=== PATIENT | female | born 1960 | race Caucasian/White ===

== ENCOUNTER 2021-10-15 15:24 | Outpatient (REF) | payer OTHER, SELFPAY ==
[2021-10-15 15:55] LABS: COVID-19 Test Negative (Negative)
== END 2021-10-15 15:25 | disposition home or self-care (01) ==
LOC: HO.LNP 15:24
PROVIDERS: Visit Provider Internal Medicine
DX: R51.9 Headache, unspecified (principal); M54.2 Cervicalgia; Z20.822 Contact with and (suspected) exposure to COVID-19
CPT/HCPCS: 87635

== ENCOUNTER 2021-10-16 14:06 | Outpatient (REF) | payer OTHER, SELFPAY ==
[2021-10-16 14:30] LABS: MANUAL DIFF FLAG NO
[2021-10-16 14:35] LABS: Basophils Absolute Auto 0.1 X10*3/uL (0.0-0.2); Basophils Percent Auto 0.6 % (0-2); Eosinophils Absolute Auto 0.2 X10*3/uL (0.0-0.4); Eosinophils Percent Auto 1.8 % (0-4); Hematocrit 39.1 % (37.0-47.0); Hemoglobin 12.8 g/dl (12.0-16.0); Imm Gran Abs Auto 0.02 X10*3/uL (0.00-0.03); Imm Gran Pct Auto 0.2 % (0.0-0.4); Lymphocytes Absolute Auto 2.6 X10*3/uL (1.2-4.9); Lymphocytes Percent Auto 28.5 % (20-40); Mean Corpuscular HGB Conc 32.7 g/dl (31.0-35.0); Mean Corpuscular Hemoglobin 28.2 pg (27.0-33.0); Mean Corpuscular Volume 86.1 fL (80.0-98.0); Mean Platelet Volume 10.3 fL (9.4-12.3); Monocytes Absolute Auto 0.6 X10*3/uL (0.1-1.2); Monocytes Percent Auto 6.5 % (2-11); Neutrophils Absolute Auto 5.6 x10*3/uL (2.0-8.3); Neutrophils Percent Auto 62.4 % (45-73); Platelet Count 279 X10*3/uL (160-400); Red Blood Count 4.54 X10*6/uL (4.20-5.50); Red Cell Distribution Width 13.2 % (11.0-16.0)
[2021-10-16 15:04] LABS: Anion Gap 11 (12-20); Blood Urea Nitrogen 16 mg/dL (9-16); C Reactive Protein 1.04 mg/dL (< or = 0.50); Calcium 9.8 mg/dL (8.4-10.2); Carbon Dioxide 33 mmol/L (22-29); Chloride 101 mmol/L (96-108); Estimated Glomerular Filt Rate 45; Glucose Random 105 mg/dL (60-115); Potassium 3.6 mmol/L (3.3-5.1); Sodium 141 mmol/L (135-145)
[2021-10-16 15:26] LABS: Thyroid Stimulating Hormone 1.29 uIU/mL (0.32-4.0)
== END 2021-10-16 14:07 | disposition home or self-care (01) ==
LOC: HO.LAB 14:06
PROVIDERS: PCP Internal Medicine; Visit Provider Internal Medicine
DX: I12.9 Hypertensive chronic kidney disease with stage 1 through stage 4 chronic kidney disease, or unspecified chronic kidney disease (principal); N18.9 Chronic kidney disease, unspecified
CPT/HCPCS: 36415; 80048; 84439; 84443; 85025; 86140

== ENCOUNTER 2021-10-28 11:14 | Outpatient (REF) | payer OTHER, SELFPAY ==
[2021-10-28 13:53] LABS: MANUAL DIFF FLAG NO
[2021-10-28 14:01] LABS: Basophils Absolute Auto 0.1 X10*3/uL (0.0-0.2); Basophils Percent Auto 0.8 % (0-2); Eosinophils Absolute Auto 0.2 X10*3/uL (0.0-0.4); Eosinophils Percent Auto 2.7 % (0-4); Hematocrit 40.4 % (37.0-47.0); Hemoglobin 12.9 g/dl (12.0-16.0); Imm Gran Abs Auto 0.03 X10*3/uL (0.00-0.03); Imm Gran Pct Auto 0.4 % (0.0-0.4); Lymphocytes Absolute Auto 2.3 X10*3/uL (1.2-4.9); Lymphocytes Percent Auto 27.4 % (20-40); Mean Corpuscular HGB Conc 31.9 g/dl (31.0-35.0); Mean Corpuscular Hemoglobin 28.1 pg (27.0-33.0); Monocytes Absolute Auto 0.6 X10*3/uL (0.1-1.2); Monocytes Percent Auto 6.9 % (2-11); Neutrophils Absolute Auto 5.1 x10*3/uL (2.0-8.3); Neutrophils Percent Auto 61.8 % (45-73); Platelet Count 282 X10*3/uL (160-400); Red Blood Count 4.59 X10*6/uL (4.20-5.50); Red Cell Distribution Width 13.7 % (11.0-16.0); White Blood Count 8.3 X10*3/uL (4.8-10.8)
[2021-10-28 14:13] LABS: Alanine Aminotransferase 15 U/L (0-31); Albumin Level 4.3 g/dL (3.5-5.0); Alkaline Phosphatase 84 U/L (39-117); Anion Gap 14 (12-20); Aspartate Amino Transferase 15 U/L (5-31); Bilirubin Total 0.6 mg/dL (0.0-1.0); Blood Urea Nitrogen 16 mg/dL (9-16); Calcium 9.7 mg/dL (8.4-10.2); Carbon Dioxide 31 mmol/L (22-29); Chloride 99 mmol/L (96-108); Cholesterol 210 mg/dL; Estimated Glomerular Filt Rate > 60; Glucose Fasting 93 mg/dL (60-99); HDL Cholesterol 44 mg/dL; LDL Cholesterol Calculated 137 mg/dl; Potassium 4.2 mmol/L (3.3-5.1); Sodium 140 mmol/L (135-145); Total Protein 7.2 g/dL (6.5-8.0); Triglycerides 145 mg/dL
== END 2021-10-28 11:15 | disposition home or self-care (01) ==
LOC: HO.10HDL 11:14
PROVIDERS: Visit Provider Internal Medicine
DX: I12.9 Hypertensive chronic kidney disease with stage 1 through stage 4 chronic kidney disease, or unspecified chronic kidney disease (principal); N18.9 Chronic kidney disease, unspecified
CPT/HCPCS: 36415; 80053; 80061; 85025

== ENCOUNTER 2023-11-02 10:42 | Outpatient (REF) | payer OTHER, SELFPAY ==
[2023-11-02 13:25] LABS: MANUAL DIFF FLAG NO
[2023-11-02 13:39] LABS: Basophils Absolute Auto 0.1 X10*3/uL (0.0-0.2); Basophils Percent Auto 0.7 % (0-2); Eosinophils Absolute Auto 0.2 X10*3/uL (0.0-0.4); Eosinophils Percent Auto 3.1 % (0-4); Hematocrit 39.1 % (37.0-47.0); Hemoglobin 12.9 g/dl (12.0-16.0); Imm Gran Abs Auto 0.02 X10*3/uL (0.00-0.03); Imm Gran Pct Auto 0.3 % (0.0-0.4); Lymphocytes Percent Auto 26.7 % (20-40); Mean Corpuscular Volume 84.8 fL (80.0-98.0); Mean Platelet Volume 10.9 fL (9.4-12.3); Monocytes Absolute Auto 0.5 X10*3/uL (0.1-1.2); Monocytes Percent Auto 6.4 % (2-11); Neutrophils Absolute Auto 4.7 x10*3/uL (2.0-8.3); Neutrophils Percent Auto 62.8 % (45-73); Platelet Count 292 X10*3/uL (160-400); Red Blood Count 4.61 X10*6/uL (4.20-5.50); Red Cell Distribution Width 13.7 % (11.0-16.0); White Blood Count 7.5 X10*3/uL (4.8-10.8)
[2023-11-02 13:59] LABS: Alanine Aminotransferase 12 U/L (0-31); Albumin Level 4.1 g/dL (3.5-5.0); Alkaline Phosphatase 77 U/L (39-117); Anion Gap 12 (12-20); Aspartate Amino Transferase 13 U/L (5-31); Bilirubin Total 0.6 mg/dL (0.0-1.0); Blood Urea Nitrogen 15 mg/dL (9-16); Calcium 9.4 mg/dL (8.4-10.2); Carbon Dioxide 33 mmol/L (22-29); Chloride 100 mmol/L (96-108); Cholesterol 182 mg/dL (<200); Estimated Glomerular Filt Rate 58; Glucose Fasting 106 mg/dL (60-99); HDL Cholesterol 38 mg/dL (>40); LDL Cholesterol Calculated 118 mg/dL (<100); Potassium 3.5 mmol/L (3.3-5.1); Sodium 141 mmol/L (135-145); Total Protein 7.1 g/dL (6.5-8.0); Triglycerides 134 mg/dL (<150)
== END 2023-11-02 10:43 | disposition home or self-care (01) ==
LOC: HO.10HDL 10:42
PROVIDERS: Visit Provider Internal Medicine
DX: I10 Essential (primary) hypertension (principal); E78.00 Pure hypercholesterolemia, unspecified; K21.9 Gastro-esophageal reflux disease without esophagitis
CPT/HCPCS: 36415; 80053; 80061; 85025

== ENCOUNTER 2024-03-31 13:57 | Outpatient (REF) | payer BC, SELFPAY ==
[2024-03-31 14:31] LABS: Appearance Urine Clear; Color Urine Dark Yellow; Glucose Urine UA Negative (Negative); Leukocyte Esterase Urine Trace (Negative); Nitrite Urine Negative (Negative); Specific Gravity - Urine 1.025 (1.005-1.025); UMIC TRIGGER UACC YES; Urine Blood Negative (Negative); Urine Ketones Trace mg/dL (Negative); Urine Protein Trace mg/dL (Neg-Trace)
[2024-03-31 14:39] LABS: Bacteria Urine None Seen (None Seen); RBC Urine 0-2 /HPF (0-2); Squamous Epithelial Cell Urine 0-2 /HPF (0-2); WBC Urine 0-5 /HPF (0-5)
== END 2024-03-31 13:58 | disposition home or self-care (01) ==
LOC: HO.LAB 13:57
PROVIDERS: PCP Internal Medicine; Visit Provider Internal Medicine
DX: R30.0 Dysuria (principal)
CPT/HCPCS: 81001; 87086

== ENCOUNTER 2025-06-06 07:22 | Day surgery (SDC) | payer BC, SELFPAY ==
--- OUTSIDE RECORDS SUMMARY | 2025-05-10 09:51 | XMS_ITS | Patient Health Record ---
Author Organization [facility] Address [address] [place] [address] Care Team Providers Care Locomotive Observer Name Role Phone Stephany Kenyon M.D. Primary Care Provider Unavail able Golden Marino Unavailable [phone] Allergies Allergen (clinical drug ingredient) Drug/Non Drug Allergy documented on EMR Reaction Allergy Type Onset Date Status seasonal (uncoded) Unknown Allergy A ctive Reason For Referral Referring Provider First Name Stephany Referring Provider Last Name Luis Daniel Referred Organization [facility] Referred Provider Golden Marino Referred Address [address] [facility],[place], [place],[address], Referred Provider Specialty Gastroentero logy General Notes Maile Cartagena 2024 02:33:40 PM >requested o blue referral from Dr. Kenyon's office for visit with Dr. Marino on 02-28-25 [phone] Referral Priority Routine Medications Medication SIG (Take, Route, Frequency, Duration) Notes Start Date End Date Status Triamterene-HCTZ 37.5-25 MG 1 tablet in the morning Orally Once a day Active Immunizations Vaccine Route Administration Date Status Comme nts Influenza Unknown 02/28/2025 Refused Social History Tobacco Use: Social History Observation Description Date Details (start date - stop date) Current Smoker NA - NA Tobacco Control (Standard) Question Answer Notes Tobacco use: Current smoker AUDIT-C (Standard) Question Answer Notes Did you have a drink contain ing alcohol in the past year? Yes How often did you have a dri nk containing alcohol in the past year? 2 to 4 times a month (2 points) How many drinks did you have on a typical day when you were drinking in the past year? 1 or 2 drinks (0 point) How often did you have six o r more drinks on one occasion in the past year? Never (0 point) Points 2 Interpretation Negative Section Notes: Nonsmoker; no sig alcohol Problems Problem Type SNOMED Code ICD Code Onset Dates Problem Status W/U Status Risk Notes Problem Colon cancer screening (704412885) Colon cancer screening (Z12.11) Active confirmed Problem Preprocedural examination (818984759344101) Preprocedural examination (Z01.818) Active confirmed Vital Signs Temperature 98.0 degrees Fahrenheit 02/28/2025 Blood pressure diastolic 01 mm Hg 02/28/2025 Height 67 in 02/28/2025 Blood pressure systolic 001 mm Hg 02/28/2025 Weight 212.8 lbs 02/28/2025 BMI 33.33 kg/m2 02/28/2025 Procedures Procedure Date Ordered Date Performed Result Body Sit e COLONOSCOPY 02/28/2025 N/A Encounters Encounter Location Date Provider Diagnosis [facility] [address] [place] [address] 02/28/2025 Golden Marino Colon cancer screeni ng Z12.11 and Preprocedural examination Z01.818 Assessments Encounter Date Diagnosis (ICD Code) Assessment Notes Treatment Notes Treatment Clinical Notes Section Notes 02/28/2025 Colon cancer screening (ICD-10 - Z12.11) Overall, Ann appears quite well. Given her age, excellent clinical appearance, and her last colonoscopy being about 10 years ago, I did recommend a follow-up colonoscopy for further screening purposes. We did review the rationale for this in regard to colon cancer prevention. Full consent has been obtained from her for this, including risks of bleeding and perforation. The procedure will be done with monitored anesthesia care. She was given the below instructions regarding adjustment of her medication for the procedure. Ann was comfortable with this plan. Thank you again for allowing me to participate in Ann's care. I shall continue to keep you advised of her progress. 02/28/2025 Preprocedural examination (ICD-10 - Z01.818) Overall, Ann appears quite well. Given her age, excellent clinical appearance, and her last colonoscopy being about 10 years ago, I did recommend a follow-up colonoscopy for further screening purposes. We did review the rationale for this in regard to colon cancer prevention. Full consent has been obtained from her for this, including risks of bleeding and perforation. The procedure will be done with monitored anesthesia care. She was given the below instructions regarding adjustment of her medication for the procedure. Ann was comfortable with this plan. Thank you again for allowing me to participate in Ann's care. I shall continue to keep you advised of her progress. Plan Of Treatment Pending Test Test Name Order Date COLONOSCOPY 02/28/2025 Next Appt Details Provider Name:Golden Marino , 06/06/2025 08:30:00 AM, [address] [place] [address] , [place], [place], [phone], Insurance Providers Payer Name Payer Address Payer Phone Subscriber Number Group Number Insured Name Patient Relationship to Insured Coverage Start Date Coverage End Date [employer] [address] [place] [address] [id number] [place] Self - patient is the insured Medical (General) History Medical History History ICD Code HTN Denies [place],DM,CVA,Lung disease,renal dise ase Negative screening colonoscopy in 2014 a t [facility] Surgical History Surgery Date(Month/Year) Cholecystectomy
[2025-06-04 14:39] VITALS: BMI 33.3
[2025-06-06 07:58] VITALS: BP 114/67; PULSE 83; RESP 14; TEMP 36.3; O2SAT 96; BMI 32.4
[2025-06-06] MEDS: Lactated Ringers 1,000 ML 100 ML IVCONT (08:07)
--- NOTE | 2025-06-06 08:16 | HO.ANESPROP2 ---
Documented by User: Angelica Ashley NP 06/05/25 09:23 HPI - Anesthesia Eval Consult details Narrative: 65 yr old female for colonoscopy [facility] Past Medical History Medical History (Updated 06/04/25 @ 14:39 by Addie Velez RN) HTN (hypertension) Surgical History Surgical History (Updated 06/04/25 @ 14:39 by Addie Velez RN) Hx of cholecystectomy History of colonoscopy (~06/13/13) Social History Social History (Updated 06/04/25 @ 14:39 by Addie Velez RN) Are you a primary director of medicare to a significant other at home: No Do you presently have visiting nurse or other home services: No Patient Tobacco Use Status: Current someday Tobacco user Tobacco use type: Smokeless Tobacco Use of substances other than those prescribed or required for medical reasons: No Have you been hit, kicked, punched, or otherwise hurt by someone within the past year? If so, by whom?: No Are you DNR?: No Advance Directives: No Advance Directives Information Provided: Yes Patient : No : No Poor oral hygiene: No Meds Allergies Allergy/AdvReac Type Severity Reaction Status Date / Time No Known Allergies Allergy Unverified 05/23/20 16:03 Home Medications ?Medication ?Instructions ?Recorded ?Confirmed ?Last Taken ?Type triamterene 37.5 1 cap PO DAILY 06/04/25 06/04/25 Unknown History mg-hydrochlorothiazide 25 mg capsule Exam Height,Weight and Vital Signs: Height 5 ft 7 in Weight 96.524 kg Documented by User: Betty Giordano DO 06/06/25 08:18 [facility] Past Medical History Medical History (Updated 06/04/25 @ 14:39 by Addie Velez RN) HTN (hypertension) Family History Family history of problems with anesthesia: No Surgical History Surgical History (Updated 06/04/25 @ 14:39 by Addie Velez RN) Hx of cholecystectomy History of colonoscopy (~06/13/13) History of Problems with Anesthesia: No Social History Social History (Updated 06/04/25 @ 14:39 by Addie Velez RN) Are you a primary director of medicare to a significant other at home: No Do you presently have visiting nurse or other home services: No Patient Tobacco Use Status: Current someday Tobacco user Tobacco use type: Smokeless Tobacco Use of substances other than those prescribed or required for medical reasons: No Have you been hit, kicked, punched, or otherwise hurt by someone within the past year? If so, by whom?: No Are you DNR?: No Advance Directives: No Advance Directives Information Provided: Yes Patient : No : No Poor oral hygiene: No Meds Allergies Allergy/AdvReac Type Severity Reaction Status Date / Time No Known Allergies Allergy Unverified 05/23/20 16:03 Home Medications ?Medication ?Instructions ?Recorded ?Confirmed ?Last Taken ?Type triamterene 37.5 1 cap PO DAILY 06/04/25 06/04/25 Unknown History mg-hydrochlorothiazide 25 mg capsule Exam Exam Date and Time: 06/06/25 0817 Height,Weight and Vital Signs: Height 5 ft 7 in Weight 96.524 kg Vital Signs Temperature 97.3 F 06/06/25 07:58 Pulse Rate 83 06/06/25 07:58 Respiratory Rate 14 06/06/25 07:58 Blood Pressure 114/67 06/06/25 07:58 Pulse Oximetry 96 06/06/25 07:58 Oxygen Delivery Method Room Air 06/06/25 07:58 Temperature 97.3 F 06/06/25 07:58 Pulse Rate 83 06/06/25 07:58 Respiratory Rate 14 06/06/25 07:58 Blood Pressure 114/67 06/06/25 07:58 Pulse Oximetry 96 06/06/25 07:58 Oxygen Delivery Method Room Air 06/06/25 07:58 Airway Mallampati Class: II TM Dist: <=3cm Neck ROM: Full Loose/Missing/Broken Teeth: No Heart: S1S2 Lungs: CTAB Assessment and Plan Assessment Anesthesia Assessment: Anesthesia Plan Discussed and Chart Reviewed Final Anesthetic Review Family History of Problems with Anesthesia: No History of Problems with Anesthesia: No NPO: Yes ASA Class: II Final Preanesthetic Review: No Changes in Pt Med Stat, Meds/Allgs Chart Reviewed, Consent Obtained/Reviewed and Anes Risks/Benef Reviewed Patient Risk: Low Procedure Risk: Low Anesthetic Plan Anesthetic Plan: MAC: and Agree w/ Assess. and Plan Disposition: Standard PACU
[2025-06-06 09:38] VITALS: BP 100/51; PULSE 78; RESP 16; TEMP 36.3; O2SAT 97
--- NOTE | 2025-06-06 09:40 | PM.OP ---
Brief Operative Note Date of Service: 06/06/25 Pre-op diagnosis: Screening Post-op diagnosis: other (Diverticulosis) Procedure: Colonoscopy to the cecum and TI Surgeon: Golden Marino MD Anesthesia: MAC Was an Administrative Representative used for this Procedure?: No Estimated blood loss (mL): 0 Pathology: none sent Condition: stable Disposition: PACU
[2025-06-06 09:45] VITALS: BP 101/55; PULSE 78; RESP 16; O2SAT 98
--- NOTE | 2025-06-06 10:04 | OP_ITS ---
DATE OF SERVICE: 06/06/2025 SURGEON: Golden Marino MD INDICATIONS: The patient presents for evaluation of colorectal cancer screening. Full consent has been obtained from her for this, including risks of bleeding and perforation. PREOPERATIVE DIAGNOSIS: Colorectal cancer screening. POSTOPERATIVE DIAGNOSIS: PROCEDURE PERFORMED: Colonoscopy to the cecum and terminal ileum. ESTIMATED BLOOD LOSS: COMPLICATIONS: ANESTHESIA: Medication used, monitored anesthesia care. ASSISTANTS: SPECIMENS: POSTOPERATIVE DIAGNOSES: Colorectal cancer screening, diverticulosis, and internal hemorrhoids. DESCRIPTION OF PROCEDURE: The patient was placed in the left lateral decubitus position. The digital rectal exam revealed no abnormalities. The Olympus video pediatric colonoscope was entered into the rectum and advanced easily to the cecum. Once in the cecum, I did identify normal-appearing cecal pouch with appendiceal orifice and a normal-appearing ileocecal valve. The terminal ileum was cannulated and appeared normal. The scope withdrawn back in the colon. The entire cecum and ileocecal valve appeared normal. The scope was slowly withdrawn assessing all mucosal surfaces carefully. Preparation was excellent. I did not visualize any sign of polyps, colitis, nor angiodysplasia. There was a mild amount of sigmoid diverticulosis. In the rectum, scope was retroflexed visualizing internal hemorrhoids, but no other pathology. The rectal mucosa appeared normal. Scope was straightened and withdrawn from the patient. She tolerated the procedure well and was returned to the recovery area in stable condition. IMPRESSION: 1. Sigmoid diverticulosis. 2. Internal hemorrhoids. PLAN: Given today's negative exam and negative family history of colon cancer, I would recommend a repeat colonoscopy in 10 years for further screening. She will otherwise see me on a p.r.n. basis. MD KAILA Vasquez/RON / [phone]
== END 2025-06-06 10:26 | disposition home or self-care (01) ==
PROVIDERS: PCP Internal Medicine; Visit Provider Internal Medicine
PROC: 0DJD8ZZ Inspection of Lower Intestinal Tract, Via Natural or Artificial Opening Endoscopic (ICD-10-PCS; CPT 45378; principal; 2025-06-06 08:30)
DX: Z12.11 Encounter for screening for malignant neoplasm of colon (principal); K57.30 Diverticulosis of large intestine without perforation or abscess without bleeding; K64.8 Other hemorrhoids; I10 Essential (primary) hypertension
CPT/HCPCS: 45378; C1726; J2704

== ENCOUNTER 2025-06-19 11:00 | Outpatient (AMB) | payer BC, SELFPAY ==
--- OUTSIDE RECORDS SUMMARY | 2025-06-06 04:30 | XMS_ITS ---
Author Organization [facility] Address [address] [place] [phone] Care Team Providers Care Van Owner Operator Name Role Phone GIULIANO WELLS M.D. Primary Care Provider Golden Arce [phone] REASON FOR VISIT screening Encounters Encounter Location Date Provider Diagnosis [facility] [place] [address] [place] [phone] 06/06/2025 Golden Marino Plan Of Treatment No Information Progress Notes * Tamia GARCIAeDOB: (65 yo F)Acc No.[id number]:06/06/2025 COLON WITH MAC Patient: Ann CAMEJO Provider: Rene Marino MD :1960 A ge:65 Y S ex:Female Date:06/06/2025 Address:[address] [place], [place] [id number] Pcp:GIULIANO WELLS M.D. Subjective: * Chief Complaints: * 1 . Screening. * Medical History: Objective: * Vitals: Assessment: Plan: * Treatment: * * The named appointment provid er may or may not be the originator of this progress note, and it is not deemed complete until electronically signed by the appointment provider. Sign off status: Pending * Provider: Rene Marino MD Date: Generated for Nimco you/Faponceg/eTransmitting on: 01:18 PM EDT
--- NOTE | 2025-06-18 13:26 | MHC.PC.OV ---
Vital Signs 06/19/25 11:19 Height 5 ft 7 in Weight 218 lb BMI 34.1 BP 120/80 Blood Pressure Location Lt brachial Position Sitting Pulse 93 Pulse Source Pulse Oximeter Temp 97.7 F Temp Source Temporal Artery Scan Pulse Oximetry (%) 97 Oxygen Delivery Method Room Air Intake Visit Reasons: YAMILKA / Dr Reilly - see comments Real Estate Office Manager Required: No Accompanied by: Self / Same As Patient Allergies No Known Allergies Allergy (Verified 06/19/25 11:27) Medication List - Last Reconciled 06/19/25 by ESE Crane triamterene-hydrochlorothiazid 37.5-25 mg 1 cap PO DAILY Tobacco use date assessed: 06/19/25 Fall risk assessment: No Falls in past year Last assessed Fall Risk: 06/19/25 Dental Screening Dental Screen Date: 06/19/25 Did you have a dental visit in the last 12 months?: Yes Did you have a dental problem in the last 6 months where you did not have access to dental care?: No HPI HPI Comments History of Present Illness Details The patient is a 65-year-old female with HTN presenting for a wellness visit to establish care and management of chronic conditions. She has a history of essential hypertension, which is currently well-controlled with Triamterene/hydrochlorothiazide, as evidenced by blood pressure reading of 120/80 mmHg. The patient underwent a colonoscopy two weeks ago, which returned normal results, and she is compliant with her preventative care schedule. She will be due in 10 years. The patient reports having a cataract in one eye, which she plans to have addressed soon. She previously experienced a vitreous detachment, which resolved without complications. She experiences occasional heartburn, typically triggered by spicy foods, and manages it effectively with [id number] antacids. Her preventative care includes regular Pap smears, with the last one conducted in 2022, and she plans to follow up with another soon. Her last mammogram was in 2022, and she intends to schedule another. She has not completed her lab work as recommended by her previous physician but plans to do so soon. Patient was informed and verbally consented to the use of an ambient scribe for clinic note documentation during this visit. [facility] Medical History (Updated 06/19/25 @ 12:11 by ESE Crane) Cataract Health care maintenance HTN (hypertension) Lipid screening Obesity (BMI 30.0-34.9) Surgical History (Updated 06/14/25 @ 15:16 by Natalie Quintana) History of colonoscopy (~06/06/25) Hx of cholecystectomy Family History (Updated 06/19/25 @ 11:24 by Kavitha Romo MA) Mother No problems noted. Father No problems noted. Social History (Updated 06/04/25 @ 14:39 by Addie Velez RN) Housing: House Are you a primary managed care director to a significant other at home: No Do you presently have visiting nurse or other home services: No Patient Tobacco Use Status: Current everyday Tobacco user (Sometimes vaping) e-Cigarette/Vaping Use: Currently Using (vaping only) service: No Current occupational status: retired Cognitive needs: No Hearing needs: No Vision needs: Yes (Reading glasses) Questionnaire PHQ-9 Over the last 2 weeks, how often have you been bothered by any of the following problems? 1. Little interest or pleasure in doing things: not at all 2. Feeling down, depressed, or hopeless: not at all 3. Trouble falling or staying asleep, or sleeping too much: not at all 4. Feeling tired or having little energy: not at all 5. Poor appetite or overeating: not at all 6. Feeling bad about yourself - or that you are a failure or have let yourself or your family down: not at all 7. Trouble concentrating on things, such as reading the newspaper or watching television: not at all 8. Moving or speaking so slowly that other people could have noticed. Or the opposite - being so fidgety or restless that you have been moving around a lot more than usual: not at all 9. Thoughts that you would be better off or of hurting yourself in some way: not at all Total score: 0 Depression Screening Interpretation: Negative Depression Screening Done: Yes Source: Developed by Drs. Golden Artis, Margo Jordan, Glenn Marrero and colleagues, with an educational kirstin from [employer]. Thrive Questionnaire Date Thrive assessed: 06/19/25 I am a: Patient Within the past 12 months, did the food you bought not last and you didn't have the money to get more?: Never true Within the past 12 months, did you worry whether your food would run out before you got money to buy more?: Never true Do you have trouble paying for medicines?: No Do you have trouble getting transportation to medical appointments?: No Do you have trouble paying your heating and electricity bill?: No Do you have trouble taking care of your child, family member or friend?: No Do you have trouble with day-to-day activities such as bathing, preparing meals, shopping, managing finances, etc.?: No Are you currently unemployed and looking for a job?: No Are you interested in more education?: No THRIVE Score: 0 AUDIT C Alcohol Use Questionnaire (AUDIT-C) 1. How often do you have a drink containing alcohol?: Monthly or less 2. How many drinks containing alcohol do you have on a typical day when you are drinking?: 1 or 2 3. How often do you have six or more drinks on one occasion?: Less than monthly Total Score: 2 RYANN-7 AMB Questionnaire RYANN-7 Date RYANN - 7 assessed: 06/19/25 Feeling nervous, anxious, or on edge: 0 = Not at all Not being able to stop or control worryin = Not at all Worrying too much about different things: 0 = Not at all Trouble relaxin = Not at all Being so restless that it is hard to sit still: 0 = Not at all Becoming easily annoyed or irritable: 0 = Not at all Feeling afraid as if something awful might happen: 0 = Not at all Total RYANN-7 score (0-4 normal; 5-9 mild; 10-14 moderate; 15-21 severe): 0 Source: Developed by Drs. Golden Artis, Margo Jordan, Glenn Marrero and colleagues, with an educational kirstin from [employer]. Review of Systems Const Details: CONSTITUTIONAL Negative HEAD/NECK Reports cataract and previous vitreous detachment EAR/NOSE/MOUTH/THROAT Negative RESPIRATORY Negative CARDIOVASCULAR Denies chest pain, dyspnea, or palpitations GASTROINTESTINAL Reports occasional heartburn, denies constipation or diarrhea MUSCULOSKELETAL Negative NEUROLOGICAL Negative PSYCHIATRIC Negative Physical exam (Primary Care) Vital Signs: Last Vital Signs Temp 97.7 F 06/19/25 11:19 Pulse 93 06/19/25 11:19 BP 120/80 06/19/25 11:19 Pulse Ox 97 06/19/25 11:19 Oxygen Delivery Method Room Air 06/19/25 11:19 BMI result Body Mass Index 34.1 GENERAL Well developed, obese, in no apparent distress HEENT Head-Normocephalic Eyes- PERRLA, EOMI, Conjuctiva clear, lids WNL Ears- Canals clear, TMs WNL Mouth/Throat-No lesions, no erythema, no exudate Neck- Supple, No lymphadenopathy, thyroid WNL RESPIRATORY Normal I:E, Clear to auscultation CARDIOVASCULAR Regular, rate and rhythm, No murmurs or rubs GASTROINTESTINAL Soft, nontender, normal bowel sounds, no masses MUSCULOSKELETAL Back- nontender Joints- no pain swelling or deformity NEUROLOGICAL Gait normal PSYCHIATRIC Oriented to person, place and time Mood and affect WNL Appearance WNL Speech WNL Thought processes WNL Tobacco/Smoking Status: Tobacco use Status Tobacco use date assessed 06/19/25 06/18/25 13:27 Patient Tobacco Use Status Current someday Tobacco 06/18/25 13:27 Tobacco use type Smokeless Tobacco 06/18/25 13:27 e-Cigarette/Vaping Use Currently Using 06/18/25 13:27 PHQ-9: PHQ-9 Score PHQ-9: Total score 0 06/18/25 13:27 Depression Screening Interpretation: Negative Thrive Assessment: Date of Thrive Assessment Date Thrive assessed 06/19/25 06/18/25 13:27 Coding Level of Care Code New Pt New Pt Level 4 (58868) Patient Type New Diagnoses Health care maintenance Z00.00 Primary hypertension I10 Hypertension type: primary hypertension Cataract H26.9 Obesity (BMI 30.0-34.9) E66.811 Time Spent (min) 30 Comment Time spent on chart review, medication reconciliation, H&P, patient education and orders Assessment & Plan Assessment & Plan (1) Health care maintenance: Code(s): Z00.00 - Encounter for general adult medical examination without abnormal findings Category: Medical Plan: - Colonoscopy performed two weeks ago with normal results - Pap smear conducted in 2022, next due in 2027 - Mammogram last performed in 2022, patient plans to schedule another - Lab work pending, patient plans to complete soon (2) HTN (hypertension): Comment: BP today was 120/80 Code(s): I10 - Essential (primary) hypertension Category: Medical Qualifiers: Hypertension type: primary hypertension Qualified Code(s): I10 - Essential (primary) hypertension Plan: The patient's essential hypertension is well-controlled with Triamterene and hydrochlorothiazide. Patient will continue current medications. Will monitor. Patient will follow up in 6 months. (3) Cataract: Code(s): H26.9 - Unspecified cataract Category: Medical Plan: The patient plans to address her cataract soon and is considering options for surgical intervention. (4) Obesity (BMI 30.0-34.9): Comment: BMI today was 34.1 Code(s): E66.811 - Obesity, class 1 Category: Medical Plan: Discussed the health risks of obesity with the patient. Reviewed benefits of even moderate weight loss with the patient. Patient will gradually try and increase exercise to 30-40 min 5-7 times per week. We discussed the patient adding more fruits and vegetables to their diet. Will monitor weight and follow up in 6 months. Plan During the visit, we discussed the patient's well-controlled hypertension and the importance of continuing her current medication regimen. We also reviewed her recent colonoscopy results and the need for ongoing preventative care, including scheduling a mammogram and Pap smear. The patient expressed concerns about her cataract, and we discussed potential surgical options and the importance of consulting with her insurance to find a suitable provider. Orders: Orders Lipid Panel Today I10 - Essential (primary) hypertension, Z00.00 - Encounter for general adult medical examination without abnormal findings, Z13.220 - Encounter for screening for lipoid disorders Complete Blood Count no Diff Today I10 - Essential (primary) hypertension, Z00.00 - Encounter for general adult medical examination without abnormal findings Comprehensive Met. Panel Today I10 - Essential (primary) hypertension, Z00.00 - Encounter for general adult medical examination without abnormal findings TSH reflex Free T4 Today I10 - Essential (primary) hypertension, Z00.00 - Encounter for general adult medical examination without abnormal findings Vitamin D 25-OH Total Today Z00.00 - Encounter for general adult medical examination without abnormal findings Medications: New triamterene-hydrochlorothiazid 37.5-25 mg 1 cap PO DAILY 90 caps 1RF for blood pressure Patient Instructions: - Continue taking Triamterene and hydrochlorothiazide as prescribed. - Schedule a mammogram and Pap smear as part of preventative care. - Follow up with an hydraulics teacher regarding cataract surgery options. - Complete pending lab work at your convenience.
[2025-06-19 11:19] VITALS: BP 120/80; PULSE 93; TEMP 36.5; O2SAT 97; BMI 34.1
--- OUTSIDE RECORDS SUMMARY | 2025-06-19 13:19 | XMS_ITS | Patient Health Record ---
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 Primary Care Provider Golden Arce Unavailable [phone] Allergies Allergen (clinical drug ingredient) Drug/Non Drug Allergy documented on EMR Reaction Allergy Type Onset Date Status seasonal (uncoded) Unknown Allergy A ctive Reason For Referral Reason THIS INSURANCE TERMI NATED Referring Provider First Name Stephany Referring Provider Last Name Luis Daniel Referred Organization [facility] Referred Provider Golden Hayes Referred Address [address] [place] [address], [address],[place], [place],[address],[place] Referred Provider Specialty Gastroentero logy General Notes Maile Cartagena 2024 02:33:40 PM >requested o blue referral from Dr. Kenyon's office for visit with Dr. Hayes on 02-28-25 [phone] Referral Priority Routine Referring Provider First Name Stephany Referring Provider Last Name Luis Daniel Referred Organization [facility] Referred Provider Golden Hayes Referred Address [address],[place],[place], [place],[address],[place] Referred Provider Specialty Gastroentero logy General Notes Maile Cartagena 2024 10:23:54 AM >AWAITIING BACK DATED REFERRAL FOR COLON WITH DR HAYES ON 06-06-[address] KENYON'S OFFICE. SPOKE WITH PATIENT'S AND HE WILL HAVE CALL BC/BS TO CHOOSE A PCP AND CALL US BACK., Maile Cartagena 06/11/2025 11:05:30 AM >Pt choose Dr. WELLS as the pcp Referral Priority Routine Medications Medication SIG (Take, [...] Status Risk Notes Problem Colon cancer screening (966813778) Colon cancer screening (Z12.11) Active confirmed Problem Preprocedural examination ([id number]) Preprocedural examination (Z01.818) Active confirmed Vital Signs Temperature 98.0 degrees Fahrenheit 02/28/2025 Blood pressure diastolic 01 mm Hg 02/28/2025 Height 67 in 02/28/2025 Blood pressure systolic 001 mm Hg 02/28/2025 Weight 212.8 lbs 02/28/2025 BMI 33.33 kg/m2 02/28/2025 Procedures Procedure Date Ordered Date Performed Result Body Sit e COLONOSCOPY 02/28/2025 N/A Encounters Encounter Location Date Provider Diagnosis [facility] [address] [place], [place] [id number] 06/06/2025 Golden Hayes [facility] [address] [place] [phone] 02/28/2025 Golden Hayes Colon cancer screeni ng Z12.11 and Preprocedural examination Z01.818 [facility] [address] [place] [phone] 06/06/2025 Golden Hayes Assessments Encounter Date Diagnosis (ICD Code) Assessment [...] Test Test Name Order Date COLONOSCOPY 02/28/2025 Insurance Providers Payer Name Payer Address Payer Phone Subscriber Number Group Number Insured Name Patient Relationship to Insured Coverage Start Date Coverage End Date [facility] PROF[employer]AL CLAIMS [address] [place] [address] [id number] 1 Ann Mcclelland Self - patient is the insured Medical (General) History Medical History History ICD Code HTN Denies [place],DM,CVA,Lung disease,renal dise ase Negative screening colonoscopy in 2014 a t [facility] Surgical History Surgery Date(Month/Year) Cholecystectomy
== END 2025-06-19 11:47 | disposition home or self-care (01) ==
LOC: HO.HMCHD 11:01
PROVIDERS: PCP Physician Assistant Medical; Visit Provider Physician Assistant Medical
DX: Z00.00 Encounter for general adult medical examination without abnormal findings (principal); I10 Essential (primary) hypertension; H26.9 Unspecified cataract; E66.811 Obesity, class 1

== ENCOUNTER 2025-07-24 11:57 | Outpatient (REF) | payer BC, SELFPAY ==
[2025-07-24 13:45] LABS: Hematocrit 41.2 % (37.0-47.0); Hemoglobin 13.3 g/dl (12.0-16.0); Mean Corpuscular HGB Conc 32.3 g/dl (31.0-35.0); Mean Corpuscular Hemoglobin 27.9 pg (27.0-33.0); Mean Corpuscular Volume 86.4 fL (80.0-98.0); NRBC Abs Auto 0.000 X10*3/uL (0.0-0.012); NRBC Pct Auto 0.0 /100WBC (0.0-0.2); Platelet Count 326 X10*3/uL (160-400); Red Blood Count 4.77 X10*6/uL (4.20-5.50); White Blood Count 9.5 X10*3/uL (4.8-10.8)
[2025-07-24 14:28] LABS: Alanine Aminotransferase 15 U/L (0-31); Albumin Level 4.6 g/dL (3.5-5.0); Alkaline Phosphatase 83 U/L (39-117); Anion Gap 12 (12-20); Aspartate Amino Transferase 20 U/L (5-31); Blood Urea Nitrogen 19 mg/dL (9-16); Calcium 10.1 mg/dL (8.4-10.2); Carbon Dioxide 29 mmol/L (22-29); Chloride 102 mmol/L (96-108); Cholesterol 192 mg/dL (<200); Estimated Glomerular Filt Rate 53; HDL Cholesterol 42 mg/dL (>40); Potassium 3.4 mmol/L (3.3-5.1); Sodium 140 mmol/L (135-145); Total Protein 7.7 g/dL (6.5-8.0); Triglycerides 125 mg/dL (<150)
== END 2025-07-24 11:58 | disposition home or self-care (01) ==
LOC: HO.10HDL 11:57
PROVIDERS: Visit Provider Physician Assistant Medical
DX: Z00.00 Encounter for general adult medical examination without abnormal findings (principal); I10 Essential (primary) hypertension; E66.9 Obesity, unspecified; H26.9 Unspecified cataract; E66.811 Obesity, class 1; N28.9 Disorder of kidney and ureter, unspecified; E55.9 Vitamin D deficiency, unspecified; Z68.32 Body mass index [BMI] 32.0-32.9, adult; Z13.220 Encounter for screening for lipoid disorders
CPT/HCPCS: 36415; 80053; 80061; 82306; 84443; 85027

== ENCOUNTER 2025-07-24 12:52 | Outpatient (AMB) | payer BC, SELFPAY ==
--- NOTE | 2025-07-24 12:55 | A.OFFPC_ITS ---
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 She reports experiencing halos around lights at night and some blurry vision. She notes that she also has a small cataract in her left eye which may eventually require surgery. She will be having cataract surgery on her right eye on 08/15/[address] Fontaine, [address] [place] [address], . Patient has had a colonoscopy and Cholecystectomy. She did not have any issues with bleeding or anesthesia. No significant family history. The patient's medical history is significant for hypertension, for which she takes Triamterene/HCTZ. Her BP today was 130/80. The patient reports having procrastinated on getting her blood work done but acknowledges it should be done annually. Pre-operative labs were drawn today, with results pending. Medical History: - Hypertension - Cataract - Postmenopausal state Patient was informed and verbally consented to the use of an ambient scribe for clinic note documentation during this visit. [facility] Medical History (Updated 07/24/25 @ 15:47 by ESE Crane) Cataract Decreased renal function Health care maintenance HTN (hypertension) Lipid screening Low vitamin D level Obesity (BMI 30.0-34.9) Surgical History (Updated 06/14/25 @ 15:16 by Natalie Quintana) History of colonoscopy (~06/06/25) Hx of cholecystectomy Family History (Updated 06/19/25 @ 11:24 by Kavitha Romo MA) Mother No problems noted. Father No problems noted. Social History (Updated 06/04/25 @ 14:39 by Addie Velez RN) Housing: House Are you a primary rn progressive care unit to a significant other at home: No Do you presently have visiting nurse or other home services: No Patient Tobacco Use Status: Current everyday Tobacco user (Sometimes vaping) e-Cigarette/Vaping Use: Currently Using (vaping only) service: No Current occupational status: retired Cognitive needs: No Hearing needs: No Vision needs: Yes (Reading glasses) Questionnaire Thrive Questionnaire Date Thrive assessed: 06/19/25 RYANN-7 AMB Questionnaire RYANN-7 Date RYANN - 7 assessed: 06/19/25 Source: Developed by Drs. Golden Artis, Margo Jordan, Glenn Marrero and colleagues, with an educational kirstin from [employer]. Review of Systems Narrative Review of Systems - Eyes: Reports seeing halos around lights at night and blurry vision. - Cardiovascular: Denies chest pains. - Respiratory: Denies shortness of breath. - Hematologic: Denies history of bleeding problems. Physical exam (Primary Care) Vital Signs: Last Vital Signs Temp 97.1 F 07/24/25 12:59 Pulse 84 07/24/25 12:59 Resp 18 07/24/25 12:59 BP 130/80 07/24/25 12:59 Pulse Ox 67 L 07/24/25 12:59 Oxygen Delivery Method Room Air 07/24/25 12:59 BMI result Body Mass Index 32.7 GENERAL Well developed, obese, in no apparent distress HEENT Head-Normocephalic Ears- Canals clear, TMs WNL Mouth/Throat-No lesions, no erythema, no exudate Neck- Supple, No lymphadenopathy, thyroid WNL RESPIRATORY Normal I:E, Clear to auscultation CARDIOVASCULAR Regular, rate and rhythm, No murmurs or rubs NEUROLOGICAL Gait normal PSYCHIATRIC Oriented to person, place and time Mood and affect WNL Appearance WNL Speech WNL Thought processes WNL Tobacco/Smoking Status: Tobacco use Status Tobacco use date assessed 06/19/25 07/24/25 12:57 Patient Tobacco Use Status Current everyday Tobacco ( 07/24/25 12:57 Sometimes vaping) Tobacco use type 06/19/25 11:47 e-Cigarette/Vaping Use Currently Using (vaping only 07/24/25 12:57 ) Thrive Assessment: Date of Thrive Assessment Date Thrive assessed 06/19/25 07/24/25 12:57 Results Reviewed Results Reviewed: CBC, Lipid panel and TSH were all essentially normal. Her BUN was 19 with GFR was 53 and Vitamin D was 21.6 Coding Level of Care Code Established Pt Est Pt Level 4 (72423) Patient Type Established Diagnoses Pre-op evaluation Z01.818 Cataract H26.9 Cataract type: age-related Primary hypertension I10 Hypertension type: primary hypertension Obesity (BMI 30.0-34.9) E66.811 Decreased renal function N28.9 Low vitamin D level R79.89 Time Spent (min) 35 Comment Time spent on lab review, H&P, patient education, and orders. Assessment & Plan Assessment & Plan (1) Pre-op evaluation: Code(s): Z01.818 - Encounter for other preprocedural examination Plan: Patient is clear for this low risk procedure. (2) Cataract: Code(s): H26.9 - Unspecified cataract Category: Medical Qualifiers: Cataract type: age-related Plan: Patient to have right cataract surgery on 08/15/25. (3) HTN (hypertension): Comment: BP today was 130/80 Code(s): I10 - Essential (primary) hypertension Category: Medical Qualifiers: Hypertension type: primary hypertension Qualified Code(s): I10 - Essential (primary) hypertension Plan: Controlled. Patient will continue current medications. Will monitor. Patient will follow up on 12/18/25. (4) Obesity (BMI 30.0-34.9): Comment: BMI today was 32.7 Code(s): E66.811 - Obesity, class 1 Category: Medical Plan: Patient has lost 9 labs since last visit. Diet and exercise were reviewed. (5) Decreased renal function: Code(s): N28.9 - Disorder of kidney and ureter, unspecified Category: Medical Plan: Patient encouraged to increase water intake. (6) Low vitamin D level: Code(s): R79.89 - Other specified abnormal findings of blood chemistry Category: Medical Plan: Patient encouraged to take Vitamin D daily. Plan Plan Patient was informed and verbally consented to the use of an ambient scribe for clinic note documentation during this visit. 1. Pre-Operative Evaluation For Cataract Surgery The patient is medically cleared for her scheduled right cataract surgery on the , pending review of her lab results. Pre-operative lab work has been collected, and the results are currently pending. If the lab results are within normal limits, surgical clearance will be faxed to Dr. Capps's office. The patient will be contacted by phone if any lab abnormalities require follow-up. 2. Hypertension The patient is on a blood pressure medication and was advised she can continue to take it up until the time of her surgery. Discussion Notes I discussed with the patient that she is presenting for pre-operative clearance for her right cataract surgery. I confirmed she has no personal or family history of bleeding issues or problems with anesthesia. I advised her that her blood pressure medication is safe to continue up until the surgery. I explained that pre-operative lab work was necessary and that the results are currently pending. I informed her that if the lab results are normal, my office will fax the clearance directly to her surgeon's office and she will not receive a call from us. Conversely, I advised that she will receive a phone call if any results are abnormal and require further action before she can be cleared for surgery. We also discussed the importance of having blood work done annually for general health maintenance. Patient Instructions - Continue taking your blood pressure medication as you normally do, including on the morning of your surgery. - We have drawn your blood for pre-operative testing and are waiting for the results. - If your lab results are normal, we will send the clearance paperwork to your surgeon's office. You will not hear from us in this case. - If there are any issues with your lab results, our office will call you to discuss them. - You can look for your lab results on the patient portal in the next day or two. - Remember to get blood work done at least once a year for your general health.
[2025-07-24 12:59] VITALS: BP 130/80; PULSE 84; RESP 18; TEMP 36.2; O2SAT 67; BMI 32.7
== END 2025-07-24 16:21 | disposition home or self-care (01) ==
LOC: HO.HMCHD 12:53
PROVIDERS: PCP Physician Assistant Medical; Visit Provider Physician Assistant Medical
DX: Z01.818 Encounter for other preprocedural examination (principal); H26.9 Unspecified cataract; I10 Essential (primary) hypertension; E66.811 Obesity, class 1; N28.9 Disorder of kidney and ureter, unspecified; R79.89 Other specified abnormal findings of blood chemistry